=== PATIENT | male | born 1975 | race African-American/Black ===

== ENCOUNTER 2023-03-10 08:29 | Outpatient (CLI) | payer OTHER | END 2023-03-10 08:30 | disposition home or self-care (01) | LOC: CSHMRI 08:29 | PROVIDERS: ATTEND Family Medicine | DX: M50.10 Cervical disc disorder with radiculopathy, unspecified cervical region (principal); S23.3XXD Sprain of ligaments of thoracic spine, subsequent encounter; S33.9XXD Sprain of unspecified parts of lumbar spine and pelvis, subsequent encounter; M51.16 Intervertebral disc disorders with radiculopathy, lumbar region; Q76.49 Other congenital malformations of spine, not associated with scoliosis; M48.02 Spinal stenosis, cervical region | CPT/HCPCS: 72141 ==

== ENCOUNTER 2023-04-01 09:43 | Outpatient (CLI) | payer OTHER | END 2023-04-01 09:44 | disposition home or self-care (01) | LOC: CSHMRI 09:43 | PROVIDERS: ATTEND Family Medicine | DX: S23.3XXD Sprain of ligaments of thoracic spine, subsequent encounter (principal); S33.9XXD Sprain of unspecified parts of lumbar spine and pelvis, subsequent encounter; M51.16 Intervertebral disc disorders with radiculopathy, lumbar region; M47.814 Spondylosis without myelopathy or radiculopathy, thoracic region; Q76.49 Other congenital malformations of spine, not associated with scoliosis; M47.26 Other spondylosis with radiculopathy, lumbar region; M48.061 Spinal stenosis, lumbar region without neurogenic claudication; M48.07 Spinal stenosis, lumbosacral region | CPT/HCPCS: 72146; 72148 ==